=== PATIENT | female | born 1965 | race Caucasian/White ===

== ENCOUNTER → 2024-12-07 | Outpatient (CLI) | payer BC, SELFPAY ==
--- NOTE | 2024-12-07 13:42 | XR_ITS ---
Examination: AP lateral soft tissue neck 2 views Technique one AP lateral soft tissue neck 2 views Exam date and time: December 07, 2024 1411 hours INDICATIONS: C-spine surgery 2020 pain years FINDINGS: Cervical fusion C4-C7 with anatomic alignment No cervical fracture Intact odontoid Significant soft tissue right carotid vascular calcification IMPRESSION: Cervical fusion with anatomic alignment
--- NOTE | 2024-12-07 13:42 | XR_ITS ---
Examination: Lumbar spine, 5 views Technique: Lumbar spine AP, lateral, coned lateral lower lumbar spine, bilateral obliques 5 views Exam date and time: December 07, 2024 1403 hours INDICATIONS: Low back pain years. FINDINGS: Moderate osteopenia Moderate diffuse facet arthropathy Minimal anterolisthesis L4 on L5 No lumbar fracture Mild to moderate lumbar degenerative disc disease, most prominent at L5-S1 IMPRESSION: [id number] lumbar degenerative disc disease, most prominent L5-S1
--- NOTE | 2024-12-07 13:42 | XR_ITS ---
Examination: Knee bilateral, 6 views, bilateral AP knees single view Technique: Knee AP, lateral, oblique each knee total 6 views, bilateral AP knees single view total 7 views Date and time of exam: December 07, 2024 1403 hours INDICATIONS: Bilateral knee pain years, left knee arthroplasty 2015 FINDINGS: Right knee moderate to advanced tricompartment osteoarthritis, severe narrowing lateral joint space Small knee effusion No fracture No patellar dislocation Total left knee arthroplasty. Satisfactory alignment No fracture No patellar dislocation IMPRESSION: Right knee moderate to advanced tricompartment osteoarthritis Total left knee arthroplasty with satisfactory alignment
--- NOTE | 2024-12-07 13:42 | XR_ITS ---
Examination: Bilateral hands, 6 views. Technique: AP, Oblique, Lateral each hand total 6 views Date and time of exam: December 07, 2024 1403 hours INDICATIONS: Diagnosis rheumatoid arthritis with hand pain years FINDINGS: Moderate juxta-articular bone demineralization Bilateral osteoarthritis interphalangeal joints and first carpometacarpal joints No erosive arthritis Old healed fracture left radius IMPRESSION: Osteoarthritis findings No significant erosive arthritic change
== END | disposition home or self-care (01) ==
PROVIDERS: Referring Provider Nurse Practitioner Family; Visit Provider Nurse Practitioner Family
DX: M43.22 Fusion of spine, cervical region (principal); M19.042 Primary osteoarthritis, left hand; M19.041 Primary osteoarthritis, right hand; M51.369 Other intervertebral disc degeneration, lumbar region without mention of lumbar back pain or lower extremity pain; M51.379 Other intervertebral disc degeneration, lumbosacral region without mention of lumbar back pain or lower extremity pain; M17.11 Unilateral primary osteoarthritis, right knee; M25.562 Pain in left knee; Z96.652 Presence of left artificial knee joint
CPT/HCPCS: 70360; 72110; 73130; 73564

== ENCOUNTER → 2024-12-08 | Outpatient (CLI) | payer BC, SELFPAY ==
[2024-12-08 10:27] LABS: Basophils # (Auto) 0.1 Thou/mm3 (0.0-0.2); Basophils % (Auto) 1 % (0-2.5); Eosinophils # (Auto) 0.2 Thou/mm3 (0.0-0.5); Eosinophils % (Auto) 2 % (0-10); Hematocrit 43.5 % (36.0-46.0); Hemoglobin 14.7 g/dL (12.0-16.0); Immature Granulocytes % (Auto) 0 % (0-0); Immature Granulocytes Auto 0.01 Thou/mm3 (0.00-0.00); Lymphocytes % (Auto) 25 % (10-50); Mean Corpuscular HGB Conc 33.8 g/dl (31.0-37.0); Mean Corpuscular Hemoglobin 32.6 pg (25.0-35.0); Mean Corpuscular Volume 97 fL (80-100); Monocytes # (Auto) 0.6 Thou/mm3 (0.0-0.8); Monocytes % (Auto) 8 % (0-12); Neutrophils % (Auto) 64 % (37-80); Nucleated Red Blood Cell % 0 /100 WBC (0); Platelet Count 289 Thou/mm3 (140-440); RDW Standard Deviation 46.5 fL (36.4-46.3); Red Blood Count 4.51 Miln/mm3 (4.00-5.20); White Blood Count 7.8 Thou/mm3 (3.6-11.0)
[2024-12-08 10:41] LABS: Glucose Estimated Average 108 mg/dL (80-131); Hemoglobin A1C 5.4 % Hgb (4.8-6.0)
[2024-12-08 10:46] LABS: Creatinine MALB Rnd Ur 161 mg/dL (30-125); Microalbumin Creat Ratio 2 mg/gCrea (<30); Microalbumin, Random Urine 4 mg/L (0-300)
[2024-12-08 11:11] LABS: Alanine Aminotransferase 13 U/L (10-49); Albumin, Serum 4.4 gm/dL (3.4-4.8); Albumin/Globulin Ratio 2.1 (1.2-2.2); Alkaline Phosphatase 55 U/L (46-116); Anion Gap 6 (7-16); Aspartate Amino Transferase 10 U/L (0-34); BUN/Creatinine Ratio 19 Ratio (12-20); Bilirubin,Total 0.4 mg/dL (0.3-1.2); Blood Urea Nitrogen 15 mg/dL (9-23); C-Reactive Protein < 0.4 mg/dL (0.0-0.9); Calcium 9.8 mg/dL (8.3-10.6); Calcium (Corrected) 9.8 mg/dL (8.5-10.1); Carbon Dioxide 30.5 mMol/L (20.0-31.0); Cardiac Risk Estimate 3.5 RATIO (3.7-5.6); Chloride 103 mMol/L (98-107); Cholesterol 218 mg/dL (132-200); Creatinine (Component) 0.8 mg/dL (0.6-1.3); Globulin 2.1 gm/dL (2.3-3.5); Glucose 104 mg/dL (74-106); HDL Cholesterol 62 mg/dL (40-60); LDL Cholesterol,Calculated 133 mg/dL (0-130); Osmolality,Calculated 278 (275-295); Potassium 4.2 mMol/L (3.4-5.1); Sodium 139 mMol/L (136-145); Thyroid Stimulating Hormone 4.02 uIU/mL (0.55-4.78); Total Protein 6.5 gm/dL (5.7-8.2); Triglycerides 115 mg/dL (30-150); eGFR > 60 See Note
[2024-12-08 11:56] LABS: Sed Rate (ESR) 12 mm/hr (0-30)
[2024-12-08 14:36] LABS: Ferritin 53 ng/mL (7.3-270.7); T4 (Thyroxine) 9.4 mcg/dL (4.5-10.9)
[2024-12-10 12:13] LABS: RA Screen Negative (Negative)
[2024-12-13 06:46] LABS: ANA Screen, IFA NEGATIVE (NEGATIVE)
== END | disposition home or self-care (01) ==
LOC: COPL 09:12
PROVIDERS: PCP Family Medicine; Referring Provider Nurse Practitioner Family; Visit Provider Nurse Practitioner Family
DX: I10 Essential (primary) hypertension (principal); Z86.2 Personal history of diseases of the blood and blood-forming organs and certain disorders involving the immune mechanism
CPT/HCPCS: 36415; 80053; 80061; 82043; 82570; 82728; 83036; 84436; 84443; 85025; 85652; 86038; 86140; 86430

== ENCOUNTER 2025-07-23 07:28 | Emergency (ER) | payer BC, SELFPAY ==
[2025-07-23 07:36] VITALS: BP 138/80; PULSE 57; RESP 18; TEMP 36.7; O2SAT 98
--- NOTE | 2025-07-23 07:43 | PD.EDRME ---
Rapid Medical Screening Exam [facility] Arrival date/time: 07/23/25 07:28 60-year-old female with no known medical history presents to the emergency room with a chief complaint of a dog bite (pit bull) to the left forearm wrist and hand. Patient states the dog was attacking her grandson and she stuck her hands in the dog's mouth to open it up and free him. I have greeted and performed a focused initial assessment of this patient. A comprehensive ED assessment and evaluation of the patient, analysis of all test results, and completion of the medical decision making process will be conducted by additional ED providers. Chief Complaint: Animal Bite Time Seen by Provider: 07/23/25 07:31 Vital signs: Vital Signs Temperature 98.0 F 07/23/25 07:36 Pulse Rate 57 L 07/23/25 07:36 Respiratory Rate 18 07/23/25 07:36 Blood Pressure 138/80 H 07/23/25 07:36 Pulse Oximetry (%) 98 07/23/25 07:36 Oxygen Delivery Method Room Air 07/23/25 07:36 Vital signs reviewed by provider: Yes
[2025-07-23 08:03] VITALS: PULSE 63
--- NOTE | 2025-07-23 08:04 | XR_ITS ---
Examination: Left hand 2 views TECHNIQUE: AP lateral left hand 2 views Date and time: July 23, 2025 0815 hours INDICATIONS: Dog bite to the hand today with lacerations and pain FINDINGS: Soft tissue defects adjacent to the fifth metacarpal phalangeal joint Advanced osteoarthritis first carpometacarpal joints Healed fracture distal radius. 1 mm foreign body in the soft tissue palmar to the distal radius on the lateral view IMPRESSION: 1 mm foreign body in the soft tissue palmar to the distal radius on lateral view. No acute fracture
--- NOTE | 2025-07-23 08:04 | XR_ITS ---
Examination: Forearm, left, 2 views. Technique: Forearm, AP, lateral 2 views Date and time of exam: July 23, 2025 0810 hours INDICATIONS: Dog bites to the forearm today, forearm pain. FINDINGS: Healed fracture distal radius Please see the hand and wrist report. No acute fracture radius or ulna IMPRESSION: No acute fracture
--- NOTE | 2025-07-23 08:04 | XR_ITS ---
Examination: Left wrist 2 views Technique one AP lateral left wrist 2 views Date and time: July, 2024, 0815 hours INDICATIONS: Dog bite to the wrist today with wrist laceration pain FINDINGS: Healed fracture distal radius. Soft tissue defect adjacent to the first carpometacarpal joint 1 mm opaque foreign body in the soft tissue in on the skin volar to the distal radius IMPRESSION: 1 mm opaque foreign body
[2025-07-23] MEDS: HYDROmorphone INJ 2 MG/ML VIAL 1 MG IVP ×3 (08:09→11:26)
[2025-07-23] MEDS: ONDANSETRON INJ 2 MG/ML INJ 2 ML 4 MG IVP (08:10)
[2025-07-23] MEDS: AMPICILLIN/SULBAC INJ 3 GM in SODIUM CHLORIDE 0.9% (POP) 100 ML IV (08:11)
--- NOTE | 2025-07-23 08:25 | EDNOTE_ITS ---
ED Animal Bite RME/HPI General Chief Complaint: Animal Bite Stated Complaint: DOG BIT, L) HAND/FOREARM, R) UPPER ARM Time Seen by Provider: 07/23/25 07:31 Arrival date/time: 07/23/25 07:28 RME / HPI RME / HPI narrative: 07/23/25 07:28 60-year-old female with no known medical history presents to the emergency room with a chief complaint of a dog bite (pit bull) to the left forearm wrist and hand. Patient states the dog was attacking her grandson and she stuck her hands in the dog's mouth to open it up and free him. I have greeted and performed a focused initial assessment of this patient. A comprehensive ED assessment and evaluation of the patient, analysis of all test results, and completion of the medical decision making process will be conducted by additional ED providers. Ms. Kimball is a 60-year-old female with past medical history of osteoarthritis and chronic pain who presented to [facility] emergency department on 06/2025 with a chief complaint of dog bite. Patient reported that her dog attacked her son and she was trying to open his jaw with her hands when she sustained trauma to her left hand forearm and wrist. Patient has multiple lacerations most prominent one below the thumb with active bleeding, patient lost her nail from her thumb and has active bleeding, another laceration noted mid hand with some bleeding. Patient has bandages on the forearm from a recent work injury and mild cuts and puncture wounds on the forearm as well. Patient has moderate to severe pain controlled with IV pain medication, has sensation intact in her hand, is able to move her wrist joint and fingers with some pain. No evidence of nerve injury on physical exam. Related Data Home Medications ?Medication ?Instructions ?Recorded ?Confirmed Multivitamins * (CENTRUM *) 1 tab PO QDAY ##0 12/30/14 Previous Rx's ?Medication ?Instructions ?Recorded Lactobacillus acidophilus 1 tab PO QDAY #20 tabs 07/23 amoxicillin 875 mg-potassium 1 tab PO BID Dog Bite 10 days #20 07/23/25 clavulanate 125 mg tablet tabs hydrocodone 10 mg-acetaminophen 1 tab PO Q6H PRN pain 3 days #12 07/23/25 325 mg tablet tabs Allergies Allergy/AdvReac Type Severity Reaction Status Date / Time cephalexin (From Keflex) Allergy Severe Headache Verified 07/23/25 07:32 latex Allergy Severe Swelling Verified 07/23/25 07:32 of Lip/Tongue/Throat Sulfa (Sulfonamide Allergy Severe Abdominal Verified 07/23/25 07:32 Antibiotics) Pain Review of Systems Review of Systems Narrative Review of Systems: ROS: -CONSTITUTIONAL: Denies weight loss, fever and chills. -HEENT: Denies changes in vision and hearing. -RESPIRATORY: Denies SOB and cough. -CV: Denies palpitations and Chest Pain. -GI: Denies abdominal pain, nausea, vomiting,constipation and diarrhea. -: Denies dysuria and urinary frequency. -MSK: Denies myalgia and joint pain. -SKIN: Denies rash and pruritus. -NEUROLOGICAL: Denies headache and syncope. -PSYCHIATRIC: Denies recent changes in mood. Denies anxiety and depression. Past Medical History Past Medical History Comments PMH COMMENT: PMH: Positive for chronic pain and osteoarthritis PSHx: Surgery for left wrist fracture Allergies: Morphine, Keflex, latex, sulfa drugs Social history: -Smoking: Chronic active smoker -Alcohol Use: Denies Family History: No pertinent family history ED Exam Narrative Physical exam: Physical Exam General: Awake and in moderate acute distress, complaining of pain HEENT: Normocephalic, atraumatic, mucous membranes moist. Heart: Regular rate and rhythm, no murmurs. Lungs: Clear to auscultation with no wheezing or crackles. Abdomen: Soft, obese, nondistended, nontender, positive bowel sounds. ?No guarding or rebound tenderness. Neurologic: Alert and oriented x3, no gross neurological deficit, and patient able to move all 4 extremities. Extremities: Left hand multiple lacerations most prominent one below the thumb on dorsal side with active bleeding, absence of nail noted left thumb and has active bleeding, another laceration noted mid hand palmar region with some bleeding. Some puncture wounds noted on the forearm, bandages on old injury from work. Right mid arm abrasions noted, superficial with minimal bleeding. Skin: As above Course Course Course Narrative: Patient received multiple doses of Dilaudid to control pain, was given Unasyn and Tdap shot. Extensive wound irrigation done by nursing, patient continued to have bleeding eventually lidocaine placed on gauze and pressure applied to the laceration on the dorsal side of the hand below the thumb, hemostasis achieved, patient's pain improved eventually, considering patient has a dog bite and there is increased risk of infection decision was made to place surgery strips around the laceration sites. Gauze applied and bandage applied on top by nursing staff. Patient will be discharged on Augmentin and [place]. Patient requested lactobacillus pills which were prescribed as well. Patient did have 1 reading of MAP 63, was given 1 L LR bolus lactate obtained 2.3, no other source of infection. Blood pressure improved with 1 L bolus and stable. Quality Measures none Orders Category Date Time Status Sail Cutter Q4H START 00 Care 07/23/25 08:03 Completed Continuous Pulse Oximetry NOW Care 07/23/25 08:03 Completed IV [Insert IV] NOW Care 07/23/25 08:02 Completed Obtain Tdap Consent X1 Care 07/23/25 08:00 Completed XR forearm LT 2V Stat Exams 07/23/25 08:04 Completed XR hand LT 2V Stat Exams 07/23/25 08:04 Completed XR wrist LT 2V Stat Exams 07/23/25 08:04 Completed CBC Stat Lab 07/23/25 08:51 Completed CMP [Comprehensive Metabolic Panel] Stat Lab 07/23/25 08:51 Completed Lactate (Lactic Acid) Stat Lab 07/23/25 08:51 Completed Mag [Magnesium] Stat Lab 07/23/25 08:51 Completed Procalcitonin Stat Lab 07/23/25 08:51 Completed Ampicillin/Sulbac Inj [Unasyn Inj] 3 gm Med 07/23/25 08:02 Discontinued Sodium Chloride 0.9% (Pop) [NS 0.9% mini bag] 100 ml IV X1 HYDROmorphone INJ [Dilaudid Inj] Med 07/23/25 11:55 Discontinued 0.5 mg IVP X1 ONE HYDROmorphone INJ [Dilaudid Inj] Med 07/23/25 08:00 Discontinued 1 mg IVP X1 ONE HYDROmorphone INJ [Dilaudid Inj] Med 07/23/25 09:09 Discontinued 1 mg IVP X1 ONE HYDROmorphone INJ [Dilaudid Inj] Med 07/23/25 10:28 Discontinued 1 mg IVP X1 ONE HYDROmorphone INJ [Dilaudid Inj] Med 07/23/25 11:53 Discontinued 1 mg IVP X1 ONE Ondansetron Inj [Zofran Inj] Med 07/23/25 08:03 Discontinued 4 mg IVP Q6HR PRN Ringers Lactated 1000 ml [Lactated Ringers] 1,000 ml Med 07/23/25 08:09 Discontinued IV 999 mls/hr TET,DIP/PERT AC (Adult)-Tdap [Boostrix Adult (Tdap) Med 07/23/25 08:00 Discontinued Vacc] 0.5 ml IMI .ONCE ONE Vital Signs Vital signs: Vital Signs Temperature 98.0 F 07/23/25 07:36 Pulse Rate 57 L 07/23/25 07:36 Respiratory Rate 18 07/23/25 07:36 Blood Pressure 138/80 H 07/23/25 07:36 Pulse Oximetry (%) 98 07/23/25 07:36 Oxygen Delivery Method Room Air 07/23/25 07:36 Animal Bite MDM Narrative MDM Narrative:: #Dog bite to the left hand. had multiple lacerations most prominent one below the thumb dorsally with active bleeding, patient lost her nail from her thumb and had active bleeding, another laceration noted mid hand on the palmar side with some bleeding. Patient had bandages on the forearm from a recent work injury and mild cuts and puncture wounds on the forearm as well. Had sensation intact in her hand, is able to move her wrist joint and fingers with some pain. No evidence of nerve injury on physical exam. Patient received multiple doses of Dilaudid to control pain, was given Unasyn and Tdap shot. X-rays were negative for any acute fractures, small foreign body was noted on hand x-ray Extensive wound irrigation done by nursing, patient continued to have bleeding eventually lidocaine placed on gauze and pressure applied to the laceration on the dorsal side of the hand below the thumb, hemostasis achieved, patient's pain improved eventually, considering patient has a dog bite and there is increased risk of infection decision was made to place surgery strips around the laceration sites. Gauze applied and bandage applied on top by nursing staff. Patient will be discharged on Augmentin and [place]. Patient requested lactobac illus pills which were prescribed as well. Patient did have 1 reading of MAP 63, was given 1 L LR bolus lactate obtained 2.3, no other source of infection. Blood pressure improved with 1 L bolus and stable. Case discussed with Attending Physician Dr.Terry Pasha Carcamo MD Internal Medicine PGY-2 Disclaimer: This note was dictated by speech recognition. Minor errors in credit collections rep may be present due to voice recognition software. Patient data External records reviewed:: None Clinical information provided by:: patient and family Social determinants that could affect healthcare access:: none Patient has the following chronic illnesses:: Osteoarthritis, chronic pain How is presenting disease/condition affected by chronic disease/condition?: uneffected by Evaluation data The following diagnostics were reviewed and interpreted by me:: lab results and radiology exam(s) Lab and/or radiology exams considered but not ordered:: None Interpretation Summary: Forearm hand and wrist x-ray?no acute fracture seen, healed distal radius fracture, small foreign body on soft tissue palmar distal radius Labs significant for lactate 2.3, glucose 115, sodium 109, WBC 12.8, MCV 102 Medications / Prescriptions Medications or Prescriptions considered but not ordered:: None Medication administrations:: Medication Administration History Discontinued Medications Diphtheria/Tetanus/Acell Pertussis (Diphth,Pertuss(Acell),Tet Vac 0.5 Ml Syr- Adult) 0.5 ml IMi .ONCE ONE Stop: 07/23/25 08:01 Last Admin: 07/23/25 09:06 Dose: Not Given Documented By: ER Non-Admin Reason: Patient Refused Comments: Patient states she is up to date, refused Hydromorphone HCl (Hydromorphone Inj 2 Mg/Ml Vial) 1 mg IVP X1 ONE Stop: 07/23/25 08:01 Last Admin: 07/23/25 08:09 Dose: 1 mg Documented By: ER Hydromorphone HCl (Hydromorphone Inj 2 Mg/Ml Vial) 1 mg IVP X1 ONE Stop: 07/23/25 09:10 Last Admin: 07/23/25 09:30 Dose: 1 mg Documented By: DB Hydromorphone HCl (Hydromorphone Inj 2 Mg/Ml Vial) 1 mg IVP X1 ONE Stop: 07/23/25 10:29 Last Admin: 07/23/25 11:26 Dose: 1 mg Documented By: ER Hydromorphone HCl (Hydromorphone Inj 2 Mg/Ml Vial) 1 mg IVP X1 ONE Stop: 07/23/25 11:54 Hydromorphone HCl (Hydromorphone Inj 2 Mg/Ml Vial) 0.5 mg IVP X1 ONE Stop: 07/23/25 11:56 Last Admin: 07/23/25 12:03 Dose: 0.5 mg Documented By: ER Ampicillin Sodium/Sulbactam (Sodium 3 gm/ Sodium Chloride) 100 mls @ 200 mls/hr IV X1 ONE Stop: 07/23/25 08:03 Last Infusion: 07/23/25 08:41 Dose: Infused Documented By: Admin: 07/23/25 08:11 Dose: 200 mls/hr Documented By: ER Lactated Ringer's (Lactated Ringers) 1,000 mls @ 999 mls/hr IV .Q1H1M ONE Stop: 07/23/25 09:09 Last Infusion: 07/23/25 09:58 Dose: Infused Documented By: Admin: 07/23/25 08:39 Dose: 999 mls/hr Documented By: ER Ondansetron HCl (Ondansetron Inj 2 Mg/Ml Inj 2 Ml) 4 mg IVP Q6HR PRN; Protocol PRN Reason: NAUSEA OR VOMITING Stop: 08/22/25 08:02 Last Admin: 07/23/25 08:10 Dose: 4 mg Documented By: ER As above Consultations Consultation(s) initiated? (list below): No Diagnosis Differential diagnosis animal bite: dog bite Most likely diagnosis given after review of the tests above:: Dog bite Admission Indicated Admission indicated?: not indicated Admission Request Was there a request for admission?: No Disposition Plan Disposition Plan: Discharge Discharge Attestation Discharge Attestation: The patient and all family members were given an opportunity to ask questions and understood the discharge instructions. Discharge instructions specifically effects, indications for sooner follow up or return to the emergency department, and the expected course of current diagnosis. Patient condition: Stable Discharge Plan Plan Patient Disposition: HOME (Self Care) Patient condition on transfer: Stable Health Concerns: -Continue wound care at home, change bandages daily, clean around steri-strips and monitor wound closely. -Return to ED immediately if you have increased swelling with tingling sensation or loss function -Highly recommend returning to emergency department tomorrow for wound check. -Complete treatment with Augmentin for 10 days, first dose tonight. -Use [place] as needed for pain -Follow up with wound care outpatient, address phone number provided below -Follow up with PCP outpatient this week to obtain referrals if needed. Prescriptions/Referrals Prescriptions/Med Rec: New amoxicillin-pot clavulanate 875-125 mg tablet 1 tab PO BID 10 Days Qty: 20 0RF hydrocodone-acetaminophen 10-325 mg tablet 1 tab PO Q6H MDD 4 PRN (Reason: pain) 3 Days Qty: 12 0RF Lactobacillus acidophilus Tablet,Chewable 1 tab PO QDAY Qty: 20 0RF Continued Multivitamins * (CENTRUM *) 1 EACH tablet 1 tab PO QDAY Qty: 0 Discontinued Hydrocodone/Acetaminophen * (NORCO 10/325 *) 1 TAB tablet 1 tab PO Q6H PRN (Reason: PAIN) Qty: 0 Referrals: Beni Sosa FNP [Primary Care Provider] - In 1 week Salomon),SADIE Ames [Physician Associate Vice President, Emergency Medicine] - In 1 week Problem List Clinical Impression: Dog bite of dorsum of hand Patient/Caregiver Discharge Instructions Print Language: Jordanian Stand Alone Forms: Samantha Award Info., Patient Portal Info Letter
[2025-07-23] MEDS: RINGERS LACTATED 1000 ML 1,000 ML 999 ML IV (08:39)
[2025-07-23 08:58] VITALS: BP 128/80; PULSE 59; RESP 18; TEMP 36.6; O2SAT 100
[2025-07-23 08:59] LABS: Lactate (Lactic Acid) 2.3 mMol/L (0.4-2.0)
[2025-07-23 09:00] LABS: Basophils # (Auto) 0.1 Thou/mm3 (0.0-0.2); Basophils % (Auto) 1 % (0-2.5); Eosinophils # (Auto) 0.2 Thou/mm3 (0.0-0.5); Eosinophils % (Auto) 1 % (0-10); Hematocrit 42.4 % (36.0-46.0); Hemoglobin 13.8 g/dL (12.0-16.0); Immature Granulocytes Auto 0.05 Thou/mm3 (0.00-0.00); Lymphocytes # (Auto) 2.2 Thou/mm3 (1.0-4.8); Lymphocytes % (Auto) 17 % (10-50); Mean Corpuscular HGB Conc 32.5 g/dl (31.0-37.0); Mean Corpuscular Hemoglobin 33.2 pg (25.0-35.0); Mean Corpuscular Volume 102 fL (80-100); Monocytes # (Auto) 0.8 Thou/mm3 (0.0-0.8); Monocytes % (Auto) 6 % (0-12); Neutrophils # (Auto) 9.6 Thou/mm3 (1.8-7.7); Neutrophils % (Auto) 75 % (37-80); Nucleated Red Blood Cell # 0.00 Thou/mm3 (0.00-0.00); Nucleated Red Blood Cell % 0 /100 WBC (0); Platelet Count 271 Thou/mm3 (140-440); RDW Standard Deviation 49.1 fL (36.4-46.3); Red Blood Count 4.16 Miln/mm3 (4.00-5.20); White Blood Count 12.8 Thou/mm3 (3.6-11.0)
[2025-07-23 09:44] LABS: Alanine Aminotransferase 11 U/L (10-49); Albumin, Serum 3.7 gm/dL (3.4-4.8); Anion Gap 10 (7-16); Aspartate Amino Transferase 15 U/L (0-34); BUN/Creatinine Ratio 11 Ratio (12-20); Bilirubin,Total 0.3 mg/dL (0.3-1.2); Blood Urea Nitrogen 9 mg/dL (9-23); Calcium 9.3 mg/dL (8.3-10.6); Calcium (Corrected) 9.5 mg/dL (8.5-10.1); Carbon Dioxide 24.5 mMol/L (20.0-31.0); Chloride 109 mMol/L (98-107); Creatinine (Component) 0.8 mg/dL (0.6-1.3); Estimated Creatinine Clearance 78.5 mL/min (>60); Globulin 1.9 gm/dL (2.3-3.5); Glucose 115 mg/dL (74-106); Magnesium 1.9 mg/dL (1.6-2.6); Osmolality,Calculated 284 (275-295); Potassium 3.8 mMol/L (3.4-5.1); Sodium 143 mMol/L (136-145); Total Protein 5.6 gm/dL (5.7-8.2); eGFR > 60 See Note
[2025-07-23 09:45] LABS: Albumin/Globulin Ratio 1.9 (1.2-2.2); Alkaline Phosphatase 51 U/L (46-116); Procalcitonin < 0.04 ng/ml (0.0-0.49)
[2025-07-23 11:55] LABS: Reflex Lactate? Y
[2025-07-23] MEDS: HYDROmorphone INJ 2 MG/ML VIAL 0.5 MG IVP (12:03)
[2025-07-23 13:17] VITALS: PULSE 90; RESP 18; TEMP 36.7; O2SAT 100
--- NOTE | 2025-07-23 13:18 | PC.NURSE ---
Patient came to the ED for dog bite to L hand. Patient stated that dog was attacking her son, and them by putting her L hand inside the dogs mouth. Patient has large wound near L thumb, thumb nail missing. Laceration the L palm. Multiple lacerations to R hand finger tips. All wounds irrigated, cleaned, and dressed. Patient verbalized discharge instructions, and states she will return within 24hrs for wound recheck.
== END 2025-07-23 13:25 | disposition home or self-care (01) ==
PROVIDERS: Emergency Provider Emergency Medicine; PCP Nurse Practitioner Family
DX: S61.412A Laceration without foreign body of left hand, initial encounter (principal); S61.542A Puncture wound with foreign body of left wrist, initial encounter; S51.842A Puncture wound with foreign body of left forearm, initial encounter; W54.0XXA Bitten by dog, initial encounter
CPT/HCPCS: 36415; 73090; 73100; 73120; 80053; 83605; 83735; 84145; 85025; 96361; 96365; 96375; 96376; 99284; J0295; J1171; J2405; J7120

== ENCOUNTER 2025-07-24 07:18 | Emergency (ER) | payer BC, SELFPAY ==
[2025-07-24 07:36] VITALS: BP 150/85; PULSE 85; RESP 18; TEMP 37.1; O2SAT 98
--- NOTE | 2025-07-24 07:40 | PD.EDRME ---
Rapid Medical Screening Exam E Arrival date/time: 07/24/25 07:18 60-year-old female with no known medical history presents to the emergency room for a wound recheck after a dog bite that occurred yesterday morning. I have greeted and performed a focused initial assessment of this patient. A comprehensive ED assessment and evaluation of the patient, analysis of all test results, and completion of the medical decision making process will be conducted by additional ED providers. Chief Complaint: Animal Bite Time Seen by Provider: 07/24/25 07:49 Vital signs: Vital Signs Temperature 98.8 F 07/24/25 07:36 Pulse Rate 85 07/24/25 07:36 Respiratory Rate 18 07/24/25 07:36 Blood Pressure 150/85 H 07/24/25 07:36 Pulse Oximetry (%) 98 07/24/25 07:36 Oxygen Delivery Method Room Air 07/24/25 07:36 Vital signs reviewed by provider: Yes
[2025-07-24] MEDS: HYDROcodone/APAP 5/325 TABLET 1 TAB PO (08:00)
[2025-07-24] MEDS: ONDANSETRON ODT 4 MG TABRAP PO (08:23)
--- NOTE | 2025-07-24 08:31 | EDNOTE_ITS ---
ED Animal Bite RME/HPI General Chief Complaint: Animal Bite Stated Complaint: RECHECK L) HAND INJURY FROM DOG BITE Time Seen by Provider: 07/24/25 07:49 Arrival date/time: 07/24/25 07:18 RME / HPI RME / HPI narrative: 07/24/25 07:18 60-year-old female with no known medical history presents to the emergency room for a wound recheck after a dog bite that occurred yesterday morning. I have greeted and performed a focused initial assessment of this patient. A comprehensive ED assessment and evaluation of the patient, analysis of all test results, and completion of the medical decision making process will be conducted by additional ED providers. Ms Machado is a 60 year old female with past medical history of Osteoarthritis and Chronic pain presented to [facility] ED 07/24/2025 for wound check. Patient was seen in ED yesterday for Dog bite wound on Left Hand had wound dressing, antibiotics administered yesterday. Patient reports today that the dressing yesterday was tight and she has some difficulty moving her hand, on examination the swelling looks significantly improved, no active bleeding noted, steri-strips intact around laceration, she is able to move all fingers and reports that her pain is well controlled with Chester. Denies any parasthesias as well. Hand was soaked, dressing removed and non-adhesive dressing will be placed today by ED Nurse. Related Data Home Medications ?Medication ?Instructions ?Recorded ?Confirmed Multivitamins * (CENTRUM *) 1 tab PO QDAY ##0 12/30/14 Previous Rx's ?Medication ?Instructions ?Recorded Lactobacillus acidophilus 1 tab PO QDAY #20 tabs 07/23 amoxicillin 875 mg-potassium 1 tab PO BID Dog Bite 10 days #20 07/23/25 clavulanate 125 mg tablet tabs hydrocodone 10 mg-acetaminophen 1 tab PO Q6H PRN pain 3 days #12 07/23/25 325 mg tablet tabs Allergies Allergy/AdvReac Type Severity Reaction Status Date / Time cephalexin (From Keflex) Allergy Severe Headache Verified 07/24/25 07:30 latex Allergy Severe Swelling Verified 07/24/25 07:30 of Lip/Tongue/Throat Sulfa (Sulfonamide Allergy Severe Abdominal Verified 07/24/25 07:30 Antibiotics) Pain Review of Systems Review of Systems Narrative Review of Systems: ROS: -CONSTITUTIONAL: Denies weight loss, fever and chills. -HEENT: Denies changes in vision and hearing. -RESPIRATORY: Denies SOB and cough. -CV: Denies palpitations and Chest Pain. -GI: Denies abdominal pain, nausea, vomiting,constipation and diarrhea. -: Denies dysuria and urinary frequency. -MSK: Denies myalgia and joint pain. Positive for Hand Pain. -SKIN: Denies rash and pruritus. -NEUROLOGICAL: Denies headache and syncope. -PSYCHIATRIC: Denies recent changes in mood. Denies anxiety and depression. Past Medical History Past Medical History Comments PMH COMMENT: PMH: Positive for chronic pain and osteoarthritis PSHx: Surgery for left wrist fracture Allergies: Morphine, Keflex, latex, sulfa drugs Social history: -Smoking: Chronic active smoker -Alcohol Use: Denies Family History: No pertinent family history ED Exam Narrative Physical exam: Physical Exam General: Awake and in no acute distress. Conversational and non-toxic appearing. HEENT: Normocephalic, atraumatic, mucous membranes moist. Heart: Regular rate and rhythm, no murmurs. Lungs: Clear to auscultation with no wheezing or crackles. Abdomen: Soft, obese, nondistended, nontender, positive bowel sounds. ?No guarding or rebound tenderness. Neurologic: Alert and oriented x3, no gross neurological deficit, and patient able to move all 4 extremities. Extremities: Left hand multiple lacerations most prominent one below the thumb on dorsal side with steri-strips, absence of nail noted left thumb steri-strips intact, another laceration noted mid hand palmar region with steristrips. Clean bandage right and left forearm intact, no soiling. Skin: As above Course Course Course Narrative: Patient reports today that the dressing yesterday was tight and she has some difficulty moving her hand, on examination the swelling looks significantly improved, no active bleeding noted, steri-strips intact around laceration, she is able to move all fingers and reports that her pain is well controlled with Chester. Denies any parasthesias as well. Hand was soaked, dressing removed and non-adhesive dressing will be placed today by ED Nurse. Quality Measures none Orders Category Date Time Status Miscellaneous Nursing Order NOW Care 07/24/25 07:52 Completed HYDROcodone*/APAP 5/325 [Chester 5/325] Med 07/24/25 07:51 Discontinued 1 tab PO X1 ONE Ondansetron Odt [Zofran Odt] Med 07/24/25 07:51 Discontinued 4 mg PO X1 ONE Ondansetron Odt [Zofran Odt] Med 07/24/25 08:08 Discontinued 4 mg PO X1 ONE Vital Signs Vital signs: Vital Signs Temperature 98.8 F 07/24/25 07:36 Pulse Rate 85 07/24/25 07:36 Respiratory Rate 18 07/24/25 07:36 Blood Pressure 150/85 H 07/24/25 07:36 Pulse Oximetry (%) 98 07/24/25 07:36 Oxygen Delivery Method Room Air 07/24/25 07:36 Animal Bite MDM Narrative MDM Narrative:: #Dogbite to Hand Patient was seen in ED yesterday for Dog bite wound on Left Hand had wound dres sing, on Augmentin was given Unasyn yesterday. Reports today that the dressing yesterday was tight and she has some difficulty moving her hand, on examination the swelling looks significantly improved, no active bleeding noted, steri-strips intact around laceration, she is able to move all fingers and reports that her pain is well controlled with Chester. Denies any parasthesias as well. Hand was soaked, dressing removed and non- adhesive dressing will be placed today by ED Nurse. Case discussed with Attending Physician Dr. Daley. Pasha Carcamo MD Internal Medicine PGY-2 Disclaimer: This note was dictated by speech recognition. Minor errors in expansion joint builder may be present due to voice recognition software. Patient data External records reviewed:: [facility] previous records Clinical information provided by:: patient Social determinants that could affect healthcare access:: none Patient has the following chronic illnesses:: Osteoarthritis and Chronic Pain How is presenting disease/condition affected by chronic disease/condition?: uneffected by Evaluation data The following diagnostics were reviewed and interpreted by me:: other (specify) (None) Lab and/or radiology exams considered but not ordered:: None Interpretation Summary: Wound assessed as above Medications / Prescriptions Medications or Prescriptions considered but not ordered:: None Medication administrations:: Medication Administration History Discontinued Medications Hydrocodone Bitart/Acetaminophen (Hydrocodone/Apap 5/325 Tablet) 1 tab PO X1 ONE Stop: 07/24/25 07:52 Last Admin: 07/24/25 08:00 Dose: 1 tab Documented By: JEWEL Ondansetron HCl (Ondansetron Odt 4 Mg Tabrap) 4 mg PO X1 ONE; Protocol Stop: 07/24/25 07:52 Last Admin: 07/24/25 08:17 Dose: Not Given Documented By: JEWEL Non-Admin Reason: Contaminated/Dropped Ondansetron HCl (Ondansetron Odt 4 Mg Tabrap) 4 mg PO X1 ONE; Protocol Stop: 07/24/25 08:09 Last Admin: 07/24/25 08:23 Dose: 4 mg Documented By: JEWEL As above Consultations Consultation(s) initiated? (list below): No Diagnosis Differential diagnosis animal bite: dog bite Most likely diagnosis given after review of the tests above:: Dog bite Admission Indicated Admission indicated?: not indicated Admission Request Was there a request for admission?: No Disposition Plan Disposition Plan: Discharge Discharge Attestation Discharge Attestation: The patient and all family members were given an opportunity to ask questions and understood the discharge instructions. Discharge instructions specifically effects, indications for sooner follow up or return to the emergency department, and the expected course of current diagnosis. Patient condition: Stable Discharge Plan Plan Patient Disposition: HOME (Self Care) Patient condition on transfer: Stable Health Concerns: Health Concerns: -Continue wound care at home, change bandages daily, clean around steri-strips and monitor wound closely. -Return to ED immediately if you have increased swelling with tingling sensation or loss function -Continue treatment with Augmentin for 10 days. -Use Chester as needed for pain -Follow up with wound care outpatient, address phone number provided below -Follow up with PCP outpatient this week to obtain referrals if needed. Prescriptions/Referrals Prescriptions/Med Rec: Continued Multivitamins * (CENTRUM *) 1 EACH tablet 1 tab PO QDAY Qty: 0 amoxicillin-pot clavulanate 875-125 mg tablet 1 tab PO BID 10 Days Qty: 20 0RF hydrocodone-acetaminophen 10-325 mg tablet 1 tab PO Q6H MDD 4 PRN (Reason: pain) 3 Days Qty: 12 0RF Lactobacillus acidophilus Tablet,Chewable 1 tab PO QDAY Qty: 20 0RF Referrals: Salomon)Hui PA-C [Physician Supervisor Order Takers, Emergency Medicine] - In 1 week Problem List Clinical Impression: Dog bite of dorsum of hand Patient/Caregiver Discharge Instructions Discharge Activity: activity as tolerated Education Materials: ED Dog Bite Print Language: Cambodian Stand Alone Forms: Samantha Award Info., Work/School Release, Patient Portal Info Letter MD Attestation MD Attestation I, Dr. Daley, have reviewed the history, exam, and assessment of the patient. I have evaluated the patient independently and agree with the plan of care documented by Dr. Carcamo. All diagnostic studies were reviewed and discussed. I confirm the diagnosis as documented by the Resident. I was present during the Medical Decision Making for this patient. The patient's plan of care was created between myself and the Resident and consistent with our discussion of the patient's case.
== END 2025-07-24 08:51 | disposition home or self-care (01) ==
LOC: SERX 08:34
PROVIDERS: Emergency Provider Emergency Medicine; PCP Nurse Practitioner Family
DX: S61.452A Open bite of left hand, initial encounter (principal); W54.0XXA Bitten by dog, initial encounter
CPT/HCPCS: 99283; Q0162; A9270

== ENCOUNTER 2025-08-04 13:00 | Emergency (ER) | payer BC, SELFPAY ==
[2025-08-04 13:00] VITALS: BMI 32.1
[2025-08-04 13:29] VITALS: BP 132/89; PULSE 78; RESP 18; TEMP 36.9; O2SAT 97
--- NOTE | 2025-08-04 13:45 | PD.EDRME ---
Rapid Medical Screening Exam RME Arrival date/time: 08/04/25 13:00 60-year-old female presents to the Emergency Department today stating she was bit by dog July 23 patient reports she has been on 2 course of antibiotics she reports a course of Augmentin as well as doxycycline patient reports symptoms have worsened Chief Complaint: Skin/Abscess/Foreign Body Time Seen by Provider: 08/04/25 13:22 Vital signs: Vital Signs Temperature 98.4 F 08/04/25 13:29 Pulse Rate 78 08/04/25 13:29 Respiratory Rate 18 08/04/25 13:29 Blood Pressure 132/89 H 08/04/25 13:29 Pulse Oximetry (%) 97 08/04/25 13:29 Oxygen Delivery Method Room Air 08/04/25 13:29
[2025-08-04 14:34] LABS: Lactate (Lactic Acid) 0.9 mMol/L (0.4-2.0)
[2025-08-04 14:36] LABS: Basophils # (Auto) 0.1 Thou/mm3 (0.0-0.2); Basophils % (Auto) 1 % (0-2.5); Eosinophils # (Auto) 0.1 Thou/mm3 (0.0-0.5); Eosinophils % (Auto) 2 % (0-10); Hematocrit 42.5 % (36.0-46.0); Hemoglobin 14.0 g/dL (12.0-16.0); Immature Granulocytes Auto 0.03 Thou/mm3 (0.00-0.00); Lymphocytes # (Auto) 2.7 Thou/mm3 (1.0-4.8); Lymphocytes % (Auto) 31 % (10-50); Mean Corpuscular HGB Conc 32.9 g/dl (31.0-37.0); Mean Corpuscular Hemoglobin 33.0 pg (25.0-35.0); Mean Corpuscular Volume 100 fL (80-100); Monocytes # (Auto) 0.8 Thou/mm3 (0.0-0.8); Monocytes % (Auto) 9 % (0-12); Neutrophils # (Auto) 5.0 Thou/mm3 (1.8-7.7); Neutrophils % (Auto) 57 % (37-80); Nucleated Red Blood Cell # 0.00 Thou/mm3 (0.00-0.00); Nucleated Red Blood Cell % 0 /100 WBC (0); Platelet Count 331 Thou/mm3 (140-440); RDW Standard Deviation 48.4 fL (36.4-46.3); Red Blood Count 4.24 Miln/mm3 (4.00-5.20); White Blood Count 8.8 Thou/mm3 (3.6-11.0)
[2025-08-04 14:46] LABS: Sed Rate (ESR) 16 mm/hr (0-30)
[2025-08-04 14:53] LABS: INR 1.0 (0.9-1.3); Partial Thromboplastin Time 28.8 Seconds (22.0-36.0); Prothrombin Time 10.3 Seconds (9.0-12.2)
[2025-08-04 14:57] VITALS: BP 163/95; PULSE 75; RESP 15; TEMP 36.8; O2SAT 97
--- NOTE | 2025-08-04 14:58 | PD.EDSKIN ---
ED Skin Abcess FB-RME/HPI General Chief complaint: Skin/Abscess/Foreign Body Stated complaint: DOG BITE LEFT HAND GETTING WORSE Time Seen by Provider: 08/04/25 13:22 Arrival date/time: 08/04/25 13:00 RME / HPI RME / HPI narrative: 60-year-old female presents to the Emergency Department today stating she was bit by dog July 23 patient reports she has been on 2 course of antibiotics she reports a course of Augmentin as well as doxycycline patient reports symptoms have worsened. Patient denies any fever denies any other complaints. No medication was taken prior to ER visit. Currently taking doxycycline PCP saw her last Related Data Home Medications ?Medication ?Instructions ?Recorded ?Confirmed Multivitamins * (CENTRUM *) 1 tab PO QDAY ##0 12/30/14 Previous Rx's ?Medication ?Instructions ?Recorded Lactobacillus acidophilus 1 tab PO QDAY #20 tabs 07/23/25 Allergies Allergy/AdvReac Type Severity Reaction Status Date / Time cephalexin (From Keflex) Allergy Severe Headache Verified 08/04/25 13:02 latex Allergy Severe Swelling Verified 08/04/25 13:02 of Lip/Tongue/Throat Sulfa (Sulfonamide Allergy Severe Abdominal Verified 08/04/25 13:02 Antibiotics) Pain Review of Systems Review of Systems Narrative Review of Systems: Review of system reviewed and within normal limits except mentioned in HPI ED Exam Narrative Physical exam: VITAL SIGNS: Reviewed. GENERAL APPEARANCE: Alert and interactive, follows commands, no acute distress, HEAD AND FACE: Non-traumatic. ENT: PERRL, pink conjunctivitis, eyelid no trauma, Mucous membrane moist. NECK: Supple, nontender, no nuchal rigidity. CHEST: No tenderness, no crepitus, no paradoxical movement, no retractions. LUNGS: Clear, well ventilated, symmetric, no rales, no wheezing, no ronchi, no stridor, good breath sounds bilaterally. HEART: Regular rate, regular rhythm, no murmur, no gallops. ABDOMEN: Soft, positive bowel sounds, nondistended, no guarding, nontender, no rebound, no masses, RECTAL: Deferred. GENITAL: Deferred. NEUROLOGICAL: Gross motor function intact sensory function intact, Appropriate for age. MUSCULOSKELETAL: low back nontender, full range of motion. EXTREMITIES: Wound noticed on the left hand, dorsal aspect, with good granulation tissue, none foul-smelling no drainage noted, full range of motion thumb and fingers. SKIN: Color pink, dry, no rash, no lacerations, no abrasions, no contusions. LYMPHATICS: Deferred. Course Quality Measures none Orders Category Date Time Status Blood Culture (Lab) Stat Lab 08/04/25 12:33 Received CBC Stat Lab 08/04/25 14:28 Completed CMP [Comprehensive Metabolic Panel] Stat Lab 08/04/25 14:28 Completed CRP [C-Reactive Protein] Stat Lab 08/04/25 14:28 Completed ESR [Sed Rate (ESR)] Stat Lab 08/04/25 14:28 Completed Lactic Acid [Lactate (Lactic Acid)] Stat Lab 08/04/25 14:28 Completed PT [Prothrombin Time with INR] Stat Lab 08/04/25 14:28 Completed PTT [Partial Thromboplastin Time] Stat Lab 08/04/25 14:28 Completed Procalcitonin Stat Lab 08/04/25 14:28 Completed Vital Signs Vital signs: Vital Signs Temperature 98.4 F 08/04/25 13:29 Pulse Rate 78 08/04/25 13:29 Respiratory Rate 18 08/04/25 13:29 Blood Pressure 132/89 H 08/04/25 13:29 Pulse Oximetry (%) 97 08/04/25 13:29 Oxygen Delivery Method Room Air 08/04/25 13:29 Skin / Abscess / Foreign Body MDM Narrative MDM Narrative:: 60-year-old female presents to the Emergency Department today stating she was bit by dog July 23 patient reports she has been on 2 course of antibiotics she reports a course of Augmentin as well as doxycycline patient reports symptoms have worsened. Patient denies any fever denies any other complaints. No medication was taken prior to ER visit. Currently taking doxycycline PCP saw her last Wound dressing done by me, I did not notice any sign of wound infection. Wound is healing pretty good good granulation tissue noted. Patient is able to bend and extend the fingers without any limitation. I did not suspect any soft tissue or deep tissue infection at this time. Patient was advised to continue taking the doxycycline and do daily dressing. Patient stable for discharge home Patient data External records reviewed:: None Clinical information provided by:: patient Social determinants that could affect healthcare access:: none Patient has the following chronic illnesses:: Chronic smoker How is presenting disease/condition affected by chronic disease/condition?: exacerbated by Evaluation data The following diagnostics were reviewed and interpreted by me:: lab results Lab and/or radiology exams considered but not ordered:: None Interpretation Summary: CBC showed no leukocytosis ESR is normal. The rest of the labs unremarkable Medications / Prescriptions Medications or Prescriptions considered but not ordered:: None Medication administrations:: None Consultations Consultation(s) initiated? (list below): No Diagnosis Skin/Abscess Differential Diagnosis: abscess of skin or subcutaneous tissue and cellulitis Most likely diagnosis given after review of the tests above:: Wound check, no sign of infection at this time Admission Indicated Admission indicated?: not indicated Admission Request Was there a request for admission?: No Disposition Plan Disposition Plan: Discharge Discharge Attestation Discharge Attestation: The patient was given an opportunity to ask questions and understood the discharge instructions. Discharge instructions specifically effects, indications for sooner follow up or return to the emergency department, and the expected course of current diagnosis. Patient condition: Stable Discharge Plan Plan Patient Disposition: HOME (Self Care) Discharge Disposition comment: stable Prescriptions/Referrals Prescriptions/Med Rec: No Action Multivitamins * (CENTRUM *) 1 EACH tablet 1 tab PO QDAY Qty: 0 Lactobacillus acidophilus Tablet,Chewable 1 tab PO QDAY Qty: 20 0RF Problem List Clinical Impression: Visit for wound check Patient/Caregiver Discharge Instructions Discharge Activity: activity as tolerated Education Materials: ED Wound Care Additional Instructions: Thank you for the opportunity for serving you today. You are stable for discharged . You are advised to: Follow-up with your PCP in 1 to 2 days Return to ED for worsening of symptoms Increase oral fluids Take medication as prescribed Continue daily dressing as needed Elevate arm as needed to decrease the swelling Try to do range of motion of the fingers and thumb Print Language: Marshallese Stand Alone Forms: Samantha Award Info., Patient Portal Info Letter CHRISTI/JUAN Supervising Physician CHRISTI/JUAN Supervising Physician: MD Zurdo
[2025-08-04 15:06] LABS: Albumin, Serum 4.3 gm/dL (3.4-4.8); Albumin/Globulin Ratio 1.9 (1.2-2.2); Alkaline Phosphatase 54 U/L (46-116); Anion Gap 6 (7-16); Aspartate Amino Transferase 13 U/L (0-34); BUN/Creatinine Ratio 13 Ratio (12-20); Bilirubin,Total 0.2 mg/dL (0.3-1.2); Blood Urea Nitrogen 9 mg/dL (9-23); C-Reactive Protein < 0.5 mg/dL (0.0-0.9); Calcium 10.1 mg/dL (8.3-10.6); Calcium (Corrected) 10.1 mg/dL (8.5-10.1); Carbon Dioxide 29.1 mMol/L (20.0-31.0); Chloride 107 mMol/L (98-107); Creatinine (Component) 0.7 mg/dL (0.6-1.3); Estimated Creatinine Clearance 87.8 mL/min (>60); Globulin 2.3 gm/dL (2.3-3.5); Glucose 92 mg/dL (74-106); Osmolality,Calculated 281 (275-295); Potassium 4.1 mMol/L (3.4-5.1); Procalcitonin < 0.04 ng/ml (0.0-0.49); Sodium 142 mMol/L (136-145); Total Protein 6.6 gm/dL (5.7-8.2); eGFR > 60 See Note
[2025-08-04 15:09] LABS: Alanine Aminotransferase 10 U/L (10-49)
== END 2025-08-04 16:09 | disposition home or self-care (01) ==
PROVIDERS: Nurse Practitioner Primary Care; Emergency Provider Family Medicine
DX: S61.452D Open bite of left hand, subsequent encounter (principal); F17.210 Nicotine dependence, cigarettes, uncomplicated; Z91.040 Latex allergy status; Z88.1 Allergy status to other antibiotic agents; Z88.2 Allergy status to sulfonamides; W54.0XXD Bitten by dog, subsequent encounter
CPT/HCPCS: 36415; 80053; 83605; 84145; 85025; 85610; 85652; 85730; 86140; 87040; 99283

== ENCOUNTER → 2025-10-31 | Outpatient (CLI) | payer BC, SELFPAY ==
[2025-10-31 10:48] LABS: Misc Send Out* See Sep Rpt
[2025-10-31 11:19] LABS: Basophils # (Auto) 0.1 Thou/mm3 (0.0-0.2); Basophils % (Auto) 1 % (0-2.5); Eosinophils # (Auto) 0.1 Thou/mm3 (0.0-0.5); Eosinophils % (Auto) 1 % (0-10); Hematocrit 44.0 % (36.0-46.0); Hemoglobin 14.7 g/dL (12.0-16.0); Immature Granulocytes Auto 0.03 Thou/mm3 (0.00-0.00); Lymphocytes # (Auto) 1.8 Thou/mm3 (1.0-4.8); Lymphocytes % (Auto) 25 % (10-50); Mean Corpuscular HGB Conc 33.4 g/dl (31.0-37.0); Mean Corpuscular Hemoglobin 32.7 pg (25.0-35.0); Mean Corpuscular Volume 98 fL (80-100); Monocytes # (Auto) 0.6 Thou/mm3 (0.0-0.8); Monocytes % (Auto) 8 % (0-12); Neutrophils # (Auto) 4.6 Thou/mm3 (1.8-7.7); Neutrophils % (Auto) 65 % (37-80); Nucleated Red Blood Cell # 0.00 Thou/mm3 (0.00-0.00); Nucleated Red Blood Cell % 0 /100 WBC (0); Platelet Count 277 Thou/mm3 (140-440); RDW Standard Deviation 47.4 fL (36.4-46.3); Red Blood Count 4.49 Miln/mm3 (4.00-5.20); White Blood Count 7.1 Thou/mm3 (3.6-11.0)
[2025-10-31 11:34] LABS: Glucose Estimated Average 120 mg/dL (80-131); Hemoglobin A1C 5.8 % Hgb (4.8-6.0)
[2025-10-31 11:35] LABS: Creatinine MALB Rnd Ur 77 mg/dL (30-125); Microalbumin Creat Ratio 5 mg/gCrea (<30); Microalbumin, Random Urine 4 mg/L (0-300)
[2025-10-31 11:37] LABS: Alanine Aminotransferase 15 U/L (10-49); Albumin, Serum 4.5 gm/dL (3.4-4.8); Albumin/Globulin Ratio 1.7 (1.2-2.2); Alkaline Phosphatase 62 U/L (46-116); Anion Gap 10 (7-16); Aspartate Amino Transferase 17 U/L (0-34); BUN/Creatinine Ratio 13 Ratio (12-20); Bilirubin,Total 0.5 mg/dL (0.3-1.2); Blood Urea Nitrogen 9 mg/dL (9-23); Calcium 9.5 mg/dL (8.3-10.6); Calcium (Corrected) 9.5 mg/dL (8.5-10.1); Carbon Dioxide 26.3 mMol/L (20.0-31.0); Cardiac Risk Estimate 3.0 RATIO (3.7-5.6); Chloride 107 mMol/L (98-107); Cholesterol 222 mg/dL (132-200); Creatinine (Component) 0.7 mg/dL (0.6-1.3); Globulin 2.7 gm/dL (2.3-3.5); Glucose 122 mg/dL (74-106); HDL Cholesterol 74 mg/dL (40-60); LDL Cholesterol,Calculated 123 mg/dL (0-130); Osmolality,Calculated 284 (275-295); Potassium 4.0 mMol/L (3.4-5.1); Sodium 143 mMol/L (136-145); Thyroid Stimulating Hormone 2.56 uIU/mL (0.55-4.78); Total Protein 7.2 gm/dL (5.7-8.2); Triglycerides 127 mg/dL (30-150); eGFR > 60 See Note
[2025-10-31 11:41] LABS: T4 (Thyroxine) 8.3 mcg/dL (4.5-10.9)
== END | disposition home or self-care (01) ==
LOC: COPL 10:22
PROVIDERS: PCP Nurse Practitioner Family; Referring Provider Physician Assistant; Visit Provider Physician Assistant
DX: I10 Essential (primary) hypertension (principal); Z79.891 Long term (current) use of opiate analgesic
CPT/HCPCS: 36415; 80053; 80061; 80307; 80361; 80365; 82043; 82570; 83036; 84436; 84443; 85025; G0480